=== PATIENT | female | born 1950 | race Caucasian/White ===

== ENCOUNTER 2017-01-17 07:14 | Outpatient (CLI) | payer BC | END 2017-01-17 07:15 | disposition home or self-care (01) | DX: J34.9 Unspecified disorder of nose and nasal sinuses (principal); R05 Cough ==

== ENCOUNTER 2017-01-17 08:00 | Outpatient (CLI) | payer BC | END 2017-01-17 23:59 | disposition home or self-care (01) | DX: E03.8 Other specified hypothyroidism (principal); R79.82 Elevated C-reactive protein (CRP); M25.50 Pain in unspecified joint ==

== ENCOUNTER 2021-08-16 08:00 | Outpatient (CLI) | payer MEDICARE, BC ==
--- NOTE | 2021-08-16 09:25 | XRAY Report ---
PROCEDURE: Foot 3 View LT INDICATIONS: CALCANEAL SPUR LEFT FOOT TECHNIQUE: 3 views of the foot were acquired. COMPARISON: None FINDINGS: Bones: No fractures or dislocations. No suspicious bony lesions. Mild osteoarthritic changes are n oted throughout left foot more prominent at first MTP joint. Dorsal enthesophyte formation involving distal portion of talus is seen suggestive of old avulsion injury. Well-defined plantar calcaneal ent hesophyte is seen. Soft tissues: No tibiotalar joint effusion. Achilles tendon appears normal. Thickened plantar fasc ia at its calcaneal insertion is seen. IMPRESSION: 1. Well-defined plantar calcaneal enthesophyte with suggestion of thickened plantar fascia at its rudy caneal insertion concerning for plantar fasciitis. 2. Mild osteoarthritic changes throughout left foot. No acute fracture or dislocation. Suggestion of old healed injury involving dorsal aspect of distal talus. Reviewed by: Kamlesh Miller MD on 08/16/2021 9:23 AM PDT Approved by: Kamlesh Miller MD on 08/16/2021 9:23 AM PDT Station ID: [id number]
== END 2021-08-16 23:59 | disposition home or self-care (01) ==
LOC: DI.S 08:00
PROVIDERS: ATTEND Emergency Medicine
DX: M77.32 Calcaneal spur, left foot (principal); M19.072 Primary osteoarthritis, left ankle and foot

== ENCOUNTER 2021-11-15 10:04 | Outpatient (CLI) | payer MEDICARE, BC ==
--- NOTE | 2021-11-18 13:42 | Mammography Report ---
BILATERAL DIGITAL SCREENING MAMMOGRAM 3D/2D: 11/15/2021 CLINICAL: Routine screening. Comparison is made to exams dated: 03/26/2016 mammogram and 06/23/2013 mammogram - [facility]. The tissue of both breasts is predominantly fatty. No significant masses, calcifications, or other findings are seen in either breast. There has been no significant interval change. IMPRESSION: NEGATIVE There is no mammographic evidence of malignancy. A 1 year screening mammogram is recommended. This exam was interpreted at Station ID: [id number]. NOTE: For mammograms, a report in lay terms will be sent to the patient. Approximately 15% of breast malignancies will not be visualized mammographically. In the management of a palpable breast mass, a negative mammogram must not discourage biopsy of a clinically suspicious lesion. Electronically Signed By: Karl Edmonds M.D. aty/penrad:11/15/2021 13:56:14 ACR BI-RADS Category 1: Negative 3341F PARENCHYMAL PATTERN: (F) - The breast(s) demonstrate(s) diffuse fatty replacement. BI-RADS CATEGORY: (1) - 1 RECOMMENDATION: (ANNUAL) - Recommend routine annual screening mammography. [id number] 1 year screening LATERALITY: (B)
== END 2021-11-15 10:05 | disposition home or self-care (01) ==
LOC: DI 10:04
PROVIDERS: ATTEND Internal Medicine
DX: Z12.31 Encounter for screening mammogram for malignant neoplasm of breast (principal)

== ENCOUNTER 2021-12-10 09:44 | Outpatient (CLI) | payer MEDICARE, OTHER ==
--- NOTE | 2021-12-10 10:47 | DEXA Report ---
PROCEDURE: Dexa Spine and/or Hip INDICATIONS: POSTMENOPAUSAL, OSTEOPOROSIS SCREENING TECHNIQUE: Dual energy x-ray absorptiometry (DXA) was performed on a [employer] System. Regions measur ed are the AP Spine, femoral neck, and if needed forearm. COMPARISON: None. FINDINGS: Lumbar Spine: Bone Mineral Density 1.353 g/cm/cm,T score 1.4. Left Hip: Bone Mineral Density 1.038 g/cm/cm,T score 0.2. Left Femoral Neck: Bone Mineral Density 0.965 g/cm/cm, T score -0.5. (T score greater or equal to -1.0: NORMAL) (T score from -1.1 to -2.4: OSTEOPENIA) (T score less than or equal to -2.5 to: OSTEOPOROSIS) Impression: Normal bone mineral density. Patients with diagnosis of osteoporosis or osteopenia should have regular bone mineral density assess ment. For those eligible for Medicare, routine testing is allowed once every 2 years. Testing frequ ency can be increased for patients who have rapidly progressing disease or for those who are receivin g medical therapy to restore bone mass. Reviewed by: Kamlesh Miller MD on 12/10/2021 10:46 AM PST Approved by: Kamlesh Miller MD on 12/10/2021 10:46 AM PST Station ID: [id number]
== END 2021-12-10 09:45 | disposition home or self-care (01) ==
LOC: DI 09:44
PROVIDERS: ATTEND Internal Medicine
DX: Z78.0 Asymptomatic menopausal state (principal)

== ENCOUNTER 2022-04-22 08:00 | Outpatient (CLI) | payer MEDICARE, OTHER ==
--- NOTE | 2022-04-22 15:12 | XRAY Report ---
PROCEDURE: Knee 4 View LT INDICATIONS: EFFUSION OF LEFT KNEE TECHNIQUE: 4 views of the left knee(s) were acquired. COMPARISON: None. FINDINGS: Bones: No fractures or dislocations. No suspicious bony lesions. Moderate severe tricompartmental knee joint degeneration. Mild lateral tilt of patella. Soft tissues: Small joint effusion. No suspicious soft tissue calcifications. IMPRESSION: 1. Moderate osteoarthritis. 2. Small knee joint effusion. Reviewed by: Clarita Parham MD on 04/22/2022 3:11 PM PDT Approved by: Clarita Parham MD on 04/22/2022 3:11 PM PDT Station ID: [id number]
== END 2022-04-22 23:59 | disposition home or self-care (01) ==
LOC: DI.S 08:00
PROVIDERS: ATTEND Physician Assistant
DX: M25.462 Effusion, left knee (principal); M17.12 Unilateral primary osteoarthritis, left knee

== ENCOUNTER 2022-05-26 10:07 | Outpatient (CLI) | payer MEDICARE, OTHER ==
[2022-05-26 14:40] LABS: BASOPHILS % (AUTO) 0.7 %; EOSINOPHILS # (AUTO) 0.4 10^3/uL (0.0-0.7); HCT - HEMATOCRIT 46.7 % (37.0-47.0); HGB - HEMOGLOBIN 14.9 g/dL (12.0-16.0); LYMPHOCYTES # (AUTO) 2.3 10^3/uL (1.5-3.5); LYMPHOCYTES % (AUTO) 37.2 %; MEAN CORPUSCULAR HGB CONC 31.9 g/dL (32.0-36.0); MEAN CORPUSCULAR VOLUME 94.2 fL (81.0-99.0); MEAN PLATELET VOLUME 9.1 fL (7.9-10.8); MONOCYTES # (AUTO) 0.4 10^3/uL (0.0-1.0); MONOCYTES % (AUTO) 6.6 %; NEUTROPHILS % (AUTO) 49.2 %; PLT - PLATELET COUNT 263 10^3/uL (130-450); RED BLOOD COUNT 4.96 10^6/uL (4.20-5.40); RED CELL DISTRIBUTION WIDTH 13.2 % (12.0-15.0); WHITE BLOOD COUNT 6.1 x10^3/uL (4.8-10.8)
[2022-05-26 14:58] LABS: ALBUMIN 4.2 g/dL (3.2-5.5); ALBUMIN/GLOBULIN RATIO 1.4 (1.0-2.2); ALKALINE PHOSPHATASE 43 IU/L (42-121); ALT ALANINE AMINOTRANSFERASE 17 IU/L (10-60); AST ASPARTATE AMINOTRANSFERASE 21 IU/L (10-42); BILIRUBIN,TOTAL 0.7 mg/dL (0.2-1.0); BUN - BLOOD UREA NITROGEN 15 mg/dL (6-20); CALCIUM 9.8 mg/dL (8.5-10.3); CARBON DIOXIDE - CO2 28 mmol/L (21-32); CHLORIDE 101 mmol/L (101-111); CHOLESTEROL 257 mg/dL; CREATININE 0.8 mg/dL (0.4-1.0); GFR - MDRD 71 (>89); GLUCOSE 93 mg/dL (70-100); HDL CHOLESTEROL 65 mg/dL; LDL CHOLESTEROL,CALCULATED 180 mg/dL; LDL/HDL RATIO 2.8 (<4.4); POTASSIUM 5.2 mmol/L (3.5-5.0); SODIUM 135 mmol/L (135-145); TOTAL PROTEIN 7.1 g/dL (6.7-8.2); TRIGLYCERIDES 58 mg/dL; VLDL CHOLESTEROL 12 mg/dL
[2022-05-26 15:10] LABS: THYROID STIMULATING HORMONE 1.05 uIU/mL (0.34-5.60)
[2022-05-26 18:26] LABS: ESTIMATED AVERAGE GLUCOSE 114 mg/dL (70-100); HEMOGLOBIN A1c% 5.6 % (4.27-6.07)
== END 2022-05-26 10:08 | disposition home or self-care (01) ==
LOC: LAB.S 10:07
PROVIDERS: ATTEND Nurse Practitioner Family
DX: E78.5 Hyperlipidemia, unspecified (principal); E03.9 Hypothyroidism, unspecified; E88.81 Metabolic syndrome and other insulin resistance
CPT/HCPCS: 36415; 80053; 80061; 83036; 83721; 84443; 85025

== ENCOUNTER 2024-07-20 10:39 | Outpatient (CLI) | payer MEDICARE, OTHER ==
--- NOTE | 2024-07-22 15:35 | Mammography Report ---
BILATERAL DIGITAL SCREENING MAMMOGRAM 3D/2D: 07/20/2024 CLINICAL: Routine screening. Comparison is made to exams dated: 11/15/2021 mammogram, 03/26/2016 mammogram, and 06/23/2013 mammogra m - [facility]. Both breasts are almost entirely fatty (category a/<25% glandular tissue). No significant masses, calcifications, or other findings are seen in either breast. There has been no significant interval change. IMPRESSION: NEGATIVE There is no mammographic evidence of malignancy. A 1 year screening mammogram is recommended. Based on the Tyrer Cuzick model (a risk assessment model) the patient's lifetime risk is 3.5% and her 10 year risk is 2.6%. According to the ACR, ACS, and NCCN guidelines, an annual breast MRI exam lane g with mammogram is recommended if the patient's lifetime risk is 20% or greater. This exam was interpreted at Station ID: [id number]. NOTE: For mammograms, a report in lay terms will be sent to the patient. Approximately 15% of breast malignancies will not be visualized mammographically. In the management of a palpable breast mass, a negative mammogram must not discourage biopsy of a clinically suspicious lesion. Electronically Signed By: Binta Ponce M.D., Ph.D. [email or web address]/[email or web address]:07/21/2024 13:06:45 letter sent: No_Letter ACR BI-RADS Category 1: Negative 3341F PARENCHYMAL PATTERN: (F) - The breast(s) demonstrate(s) diffuse fatty replacement. BI-RADS CATEGORY: (1) - 1 RECOMMENDATION: (ANNUAL) - Recommend routine annual screening mammography. [id number] 1 year screening LATERALITY: (B)
== END 2024-07-20 10:40 | disposition home or self-care (01) ==
LOC: DI.S 10:39
PROVIDERS: ATTEND Nurse Practitioner Family
DX: Z12.31 Encounter for screening mammogram for malignant neoplasm of breast (principal)